=== PATIENT | female | born 1980 | race Caucasian/White ===

== ENCOUNTER 2020-09-29 22:42 | Emergency (ER) | payer OTHER, MEDICAID ==
[~2020-09-29] VITALS: Ht 170.2 cm; Wt 86.4 kg
[2020-09-29] MEDS ORDERED: FLUT100B IH (22:50)
[2020-09-29] MEDS ORDERED: ALBU8HFA IH (22:50)
[2020-09-30] MEDS ORDERED: METHOCARBAMOL 500 MG TABLET PO ONE (00:15)
[2020-09-30] MEDS ORDERED: ACETAMINOPHEN 500 MG TABLET PO ONE (00:15)
[2020-09-30 02:45] VITALS: BP 118/76
== END 2020-09-30 03:13 | disposition home or self-care (01) ==
LOC: EMS 22:42
DX: S93.402A Sprain of unspecified ligament of left ankle, initial encounter (principal); X58.XXXA Exposure to other specified factors, initial encounter; Y93.89 Activity, other specified; Y92.89 Other specified places as the place of occurrence of the external cause; Y99.8 Other external cause status
CPT/HCPCS: 93971; 99283; 99284